=== PATIENT | male | born 1960 | race Caucasian/White ===

== ENCOUNTER 2024-12-13 06:19 | Day surgery (SDC) | payer BC, SELFPAY ==
[2024-12-13 08:34] LABS: Glucose - Point of Care 140 mg/dl (70-99)
== END 2024-12-13 09:55 | disposition home or self-care (01) ==
LOC: GI 06:19
PROVIDERS: ATTENDING PHYSICIAN Internal Medicine Gastroenterology
DX: Z12.11 Encounter for screening for malignant neoplasm of colon (principal); Z86.0100 Personal history of colon polyps, unspecified; K64.8 Other hemorrhoids; K62.89 Other specified diseases of anus and rectum; D12.4 Benign neoplasm of descending colon
CPT/HCPCS: 45385; 88305; 82962

== ENCOUNTER 2025-03-28 05:47 | Day surgery (SDC) | payer BC, SELFPAY ==
[2025-03-16 09:07] LABS: Hematocrit 50.8 % (39.0-52.0); Hemoglobin 17.0 g/dL (13.0-18.0); Mean Corp Hgb Conc. 33.5 g/dL (33.0-37.0); Mean Corpuscular Volume 89.8 fL (80.0-94.0); Platelet Count 191 10^3/uL (130-400); Red Cell Dist. Width 13.2 % (11.5-14.5)
[2025-03-16 09:49] LABS: Blood Urea Nitrogen 18 mg/dl (9-20); Calcium 9.7 mg/dl (8.4-10.2); Carbon Dioxide 25 mmol/L (22-30); Chloride 109 mmol/L (98-107); Glucose 134 mg/dl (70-99); Potassium 4.4 mmol/L (3.5-5.1); Sodium 143 mmol/L (135-145); eGFR > 60.00
[2025-03-16 13:54] VITALS: BMI 27.2
--- NOTE | 2025-03-16 14:16 | PTCARENOTE ---
Patients 03/16 ECG abnormal- reviewed by Dr. Quesada, no additional interventions required
[2025-03-28] VITALS (7 sets, daily range): BP systolic 150–175; BP diastolic 82–103; BMI 27.2
[2025-03-28] MEDS: TYLENOL 1000 MG PO (06:36)
[2025-03-28] MEDS: NORMOSOL-R/PLASMALYTE-A 1000 IV (06:36)
[2025-03-28 06:37] LABS: Glucose - Point of Care 137 mg/dl (70-99)
[2025-03-28 09:11] LABS: Glucose - Point of Care 178 mg/dl (70-99)
== END 2025-03-28 10:23 | disposition home or self-care (01) ==
LOC: SDS 05:47
PROVIDERS: ATTENDING PHYSICIAN Surgery; FAMILY PHYSICIAN Family Medicine
DX: K42.9 Umbilical hernia without obstruction or gangrene (principal)
CPT/HCPCS: 49591; 80048; 82962; 85027; 93005